=== PATIENT | male | born 1965 | race Caucasian/White ===

== ENCOUNTER 2022-03-06 07:49 | Emergency (ER) | payer OTHER ==
[~2022-03-06] VITALS: Ht 172.7 cm; Wt 158.8 kg
[2022-03-06 08:11] VITALS: BP 139/79
--- NOTE | 2022-03-06 08:16 | NUR ---
assisted to bed ambulatory. alert oriented
--- NOTE | 2022-03-06 09:45 | NUR ---
chest X-ray done
[2022-03-06] MEDS ORDERED: CYCL5TAB PO (11:07)
--- NOTE | 2022-03-06 11:15 | NUR ---
Patient discharged to home in stable condition. Written and verbal after care instructions given. Patient verbalizes understanding of instruction.
== END 2022-03-06 11:27 | disposition home or self-care (01) ==
LOC: ER 07:49
DX: M54.6 Pain in thoracic spine (principal); Z79.899 Other long term (current) drug therapy
CPT/HCPCS: 71045-TC